=== PATIENT | male | born 1980 | race Hispanic/Latino ===

== ENCOUNTER 2017-10-26 06:43 | Emergency (ER) | payer OTHER ==
[~2017-10-26] VITALS: Ht 170.2 cm; Wt 99.8 kg
[2017-10-26] MEDS: IBUPROFEN 400 MG TAB PO ONE (07:51)
[2017-10-26 07:54] VITALS: BP 158/94
== END 2017-10-26 08:05 | disposition home or self-care (01) ==
LOC: FSED 06:43
DX: M25.512 Pain in left shoulder (principal); S43.402A Unspecified sprain of left shoulder joint, initial encounter; X50.1XXA Overexertion from prolonged static or awkward postures, initial encounter; Y99.0 Civilian activity done for income or pay; R03.0 Elevated blood-pressure reading, without diagnosis of hypertension
CPT/HCPCS: 99284